=== PATIENT | male | born 1955 | race Caucasian/White ===

== ENCOUNTER → 2018-10-19 | Emergency (ER) | payer OTHER ==
[~2018-10-19] VITALS: Ht 177.8 cm; Wt 98.4 kg
[~2018-10-19] MED LIST: CIALIS5 MG; COREG CR20 MG; DIOVAN HCT 3201 EACH; MEDROL8 MG PO; MICARDIS80 MG; MOTRIN IB200 MG; NIFE60TA3; NORVASC10 MG; SPIRONOLACTONE PO
== END | disposition home or self-care (01) ==
LOC: ER 23:42
DX: S46.912A Strain of unspecified muscle, fascia and tendon at shoulder and upper arm level, left arm, initial encounter (principal); X50.9XXA Other and unspecified overexertion or strenuous movements or postures, initial encounter; Y93.89 Activity, other specified; Y92.69 Other specified industrial and construction area as the place of occurrence of the external cause; Y99.8 Other external cause status

== ENCOUNTER 2018-11-02 15:55 | Emergency (ER) | payer OTHER ==
[~2018-11-02] VITALS: Ht 177.8 cm; Wt 97.1 kg
== END 2018-11-03 00:22 | disposition home or self-care (01) ==
LOC: ER 15:55
DX: R16.0 Hepatomegaly, not elsewhere classified (principal); R10.13 Epigastric pain

== ENCOUNTER 2018-11-10 07:37 | Outpatient (CLI) | payer OTHER | END 2018-11-10 07:42 | disposition home or self-care (01) | LOC: MRI 07:37 | DX: R93.2 Abnormal findings on diagnostic imaging of liver and biliary tract (principal); K76.89 Other specified diseases of liver; D18.03 Hemangioma of intra-abdominal structures | CPT/HCPCS: 74182 ==

== ENCOUNTER 2018-11-27 11:47 | Emergency (ER) | payer OTHER ==
[~2018-11-27] VITALS: Ht 177.8 cm; Wt 95.3 kg
[2018-11-27] MEDS ORDERED: ALDACTONE50 MG PO (12:43)
[2018-11-27] MEDS ORDERED: ALLOPURINOL100 MG PO (12:44)
== END 2018-11-27 18:56 | disposition home or self-care (01) ==
LOC: ER 11:47
DX: R31.0 Gross hematuria (principal)